=== PATIENT | male | born 1985 | race Caucasian/White ===

== ENCOUNTER 2020-04-05 18:30 | Emergency (ER) | payer BC ==
[2020-04-05] MEDS ORDERED: Benztropine 1 MG Tab PO STA (19:18)
[2020-04-05] MEDS ORDERED: Haloperidol Lactate 5 MG/ML SDV IM ONE (19:18)
--- NOTE | 2020-04-05 19:27 | EDM.PDOC ---
ED HPI GENERAL MEDICAL PROBLEM - General Chief Complaint: Cardiovascular Problem Stated Complaint: LEFT JAW AND ARM PAIN Time Seen by Provider: 04/05/20 18:56 Source of Information: Reports: Patient History Limitations: Reports: No Limitations - History of Present Illness INITIAL COMMENTS - FREE TEXT/NARRATIVE: Mr. Caraballo is a very pleasant 34-year-old gentleman who now presents the ED with unusual neurologic symptoms. He states that he was in his usual state of good health until around 16:00 afternoon, when he developed an "odd" discomfort in his left shoulder. He states that he did not pay much attention to it, however, not long afterwards he then developed an unusual sensation running down his left upper extremity, followed by a tingling/numbness sensation in his left 4th and 5th fingers, followed by the same tingling and numbness sensation involving his entire left upper extremity, including his left hand and remaining fingers. He also reports having an intermittent sharp pain felt in the left side of his neck that will either radiate up to his left jaw or to his left shoulder. He reports feeling his lower left face feeling tingling and numb, and he indicates the area over his left mandible. At present, the tingling and numbness sensation to his lower left face has persisted, although he reports the tingling/numbness sensation to his left upper extremity has improved, although not completely resolved. He also feels, at present, a sort of pain that radiates up and down his left upper extremity. The patient denies finding any modifiers to any of his symptoms, such as position, moving his head around, his neck, or either of his extremities. He also reports developing a headache around 18:00 this evening. He states that initially it was felt bifrontally, but currently is felt in his left forehead. He states that headaches are unusual for him. No associated nausea, blurry vision or other visual changes, or weakness, anywhere. No prior similar symptoms. I was notified by SHIRA Robles, that the patient's checked the patient's blood pressure at home, finding it to be essentially normal, but then giving the patient a dose of her mother's diltiazem, sometime prior to coming to the ED. The patient denies taking any other [id number] or home remedies to address his symptoms prior to coming to the ED. The patient states that he checks his blood glucose once a day, typically in the evening, with a normal Accu-Chek of around 170. Tonight it was 190. Here in the ED, the patient is found to be hemodynamically stable, afebrile, saturating 96% on room air. Prior to 16:00 this afternoon, the patient denies having a recent fever, chills, sore throat, ear pain, nasal or sinus congestion, cough, dyspnea, chest pain, palpitations, nausea, vomiting, constipation, diarrhea, abdominal pain, urinary symptoms, recent weight gain or weight loss, recent bloody bowel movements or black bowel movements, recent joint aches, headaches, or rashes. The patient's PCP is Dr. Ayad Hernandez, in [place]. He did not receive an influenza vaccine this season, and declined an offer to receive one here [facility]. - Related Data Allergies Allergy/AdvReac Type Severity Reaction Status Date / Time meperidine [From Demerol] Allergy Other Verified 04/05/20 18:52 Penicillins Allergy Airway Verified 04/05/20 18:52 Tightness Home Meds: Home Meds Canagliflozin/Metformin HCl [Invokamet 50-1,000 mg Tablet] 1 tab PO DAILY 04/05/20 [History] Diltiazem [Cardizem CD] 04/05/20 [History] Dulaglutide [Trulicity] 1 injection SQ WEEKLY 04/05/20 [History] Omeprazole 20 mg PO DAILY 04/05/20 [History] Rizatriptan Benzoate [Rizatriptan] 1 tab PO ASDIRECTED PRN #3 tab.rapdis 04/05/20 [Rx] atorvaSTATin [Lipitor] 20 mg PO DAILY 04/05/20 [History] lisinopriL [Lisinopril] 5 mg PO DAILY 04/05/20 [History] Past Medical History Cardiovascular History: Reports: High Cholesterol Respiratory History: Reports: Asthma (suspected, not tested) Gastrointestinal History: Reports: GERD Genitourinary History: Reports: Renal Calculus (several) Endocrine/Metabolic History: Reports: Diabetes, Type II, Obesity/BMI 30+ - Infectious Disease History Infectious Disease History: Reports: Chicken Pox - Past Surgical History GI Surgical History: Reports: Appendectomy, EGD (x several, as a child) Male Surgical History: Reports: Ureteral Stent Social & Family History - Tobacco Use Tobacco Use Status *Q: Never Tobacco User - Caffeine Use Caffeine Use: Reports: Coffee, Soda - Alcohol Use Alcohol Use History: No - Recreational Drug Use Recreational Drug Use: No - Living Situation & Occupation Living situation: Reports: , with Spouse Occupation: Employed ([employer]) ED ROS GENERAL - Review of Systems Review Of Systems: Comprehensive ROS is negative, except as noted in HPI. ED EXAM, NEURO - Physical Exam Exam: See Below Exam Limited By: No Limitations General Appearance: Alert, WD/WN, No Apparent Distress Eye Exam: Bilateral Eye: EOMI, Normal Inspection, PERRL Ears: Normal External Exam, Normal Canal, Hearing Grossly Normal, Normal TMs Nose: Normal Inspection, Normal Mucosa, No Blood Throat/Mouth: Normal Inspection, Normal Lips, Normal Teeth, Normal Gums, Normal Oropharynx, Normal Voice, No Airway Compromise Head Exam: Atraumatic, Normocephalic, Other (The patient reports normal and equivalent tactile sensation to both sides of his face, upper and lower) Neck: Normal Inspection, Supple, Non-Tender, Full Range of Motion. No: Lymph adenopathy (L), Lymphadenopathy (R) Respiratory/Chest: No Respiratory Distress, Lungs Clear, Normal Breath Sounds, No Accessory Muscle Use Cardiovascular: Normal Peripheral Pulses, Regular Rate, Rhythm, No Edema, No Gallop, No JVD, No Murmur, No Rub GI/Abdominal: Normal Bowel Sounds, Soft, Non-Tender, No Organomegaly, No Di stention, No Abnormal Bruit, No Mass Neurological: Alert, Normal Dorsiflexion, CN II-XII Intact, Normal Plantar Flexion, Oriented x 3, Other (Subtle weakness to abduction of the left upper extremity at the shoulder, flexion and extension at the left elbow, and left hand hr shared services consultant. Despite the patient reporting an usual sensation to his left upper extremity, he denies any tactile decreased sensation.) Back Exam: Normal Inspection, Full Range of Motion, NT Extremities: Normal Inspection, Normal Range of Motion, No Pedal Edema, Normal Capillary Refill Psychiatric: Normal Affect Skin Exam: Warm, Dry, Intact, Normal Color, No Rash #1 Interpretation EKG Date: 04/05/20 Time: 19:36 Rhythm: NSR Rate (Beats/Min): 96 [place]: Normal P-Wave: Present QRS: Normal ST-T: Normal QT: Normal Comparison: NA - No Prior EKG Course - Vital Signs Last Recorded V/S: Last Vital Signs Temp 36.8 C 04/05/20 18:41 Pulse 90 04/05/20 18:41 Resp 18 04/05/20 18:41 BP 119/81 04/05/20 18:41 Pulse Ox 96 04/05/20 18:41 - Orders/Labs/Meds Orders: Active Orders 24 hr Category Date Time Status Accu Check [Blood Glucose Check, Bedside] [RC] ONETIME Care 04/05/20 19:19 Active EKG Documentation Completion [RC] STAT Care 04/05/20 19:19 Active Head wo Cont [CT] Stat Exams 04/05/20 19:18 Taken Labs: Laboratory Tests 04/05/20 Range/Units 19:29 POC Glucose 145 H (70-105) mg/dL Meds: Medications Discontinued Medications Generic Name Dose Route Start Last Admin Trade Name Freq PRN Reason Stop Dose Admin Benztropine Mesylate 1 mg 04/05/20 19:18 04/05/20 19:27 Cogentin PO 04/05/20 19:19 1 mg ONETIME STA Administration Haloperidol Lactate 5 mg 04/05/20 19:18 04/05/20 19:27 Haldol IM 04/05/20 19:19 5 mg ONETIME ONE Administration - Re-Assessments/Exams Free Text/Narrative Re-Assessment/Exam: 04/05/20 19:20 As above, the patient developed an odd sensation in his left shoulder, with a subsequent unusual sensation in his left upper extremity, followed by tingling and numbness in his left 5th and 4th fingers, followed by tingling and numbness involving his entire left upper extremity, with occasional sharp pain felt in the left side of his neck radiating up to his left jaw, or to his left shoulder, with current symptoms including doing a numbness sensation to his lower left face, along with proved tingling and numbness of his left upper extremity. None of his symptoms are modifiable with position or movement of his head, neck, or upper extremities. The patient reports developing a headache, initially felt bifrontally but now felt in the left forehead area, at some point after the onset of his other symptoms, and continuing until present. On examination, cranial nerves II through XII are completely intact, including tactile sensation of his face, despite the patient reporting an unusual sensation to his lower left face, however, I do notice some subtle weakness to his left upper extremity. Similarly, he reports normal tactile sensation to his left upper extremity, even though he states that it continues to feel odd. No tenderness to palpation of his face, left neck, posterior neck, or left upper extremity. I suspect that the patient is suffering from an unusual presentation of a migraine headache. My suspicion for an acute stroke is low, however, I think it would be prudent to obtain a CT of his head just to make sure that there are no anatomic abnormalities that might explain his symptoms. In the meantime, however, I see no contraindication to treating him for a migraine, therefore I have ordered IM Haldol and oral Cogentin. An ECG obtained at triage is grossly unremarkable. Although the patient states that his blood glucose tonight, after the onset of his symptoms was 190, I have also ordered an Accu-Chek. 04/05/20 19:56 The patient's Accu-Chek is 145. CT of the head without contrast is read by Fer as "No evidence for acute transcortical infarct, acute intracranial hemorrhage, or mass-effect." 04/05/20 20:09 CT results discussed with the patient. He reports complete resolution of his symptoms following IM Haldol. He states that he has no symptoms whatsoever at this time - no headache, nor tingling/numbness anywhere. I will discharge the patient home with recommendation that he get plenty of rest tonight in a dark, quiet place. He should stay adequately hydrated. I will submit a prescription for rizatriptan that the patient can take if his symptoms recur. Departure - Departure Time of Disposition: 20:10 Disposition: Home, Self-Care 01 Condition: Good Clinical Impression: Migraine headache without aura - Discharge Information *PRESCRIPTION DRUG MONITORING PROGRAM REVIEWED*: Not Applicable *COPY OF PRESCRIPTION DRUG MONITORING REPORT IN PATIENT JEREMY: Not Applicable Referrals: Ayad Hernandez MD [Primary Care Provider] - Forms: ED Department Discharge Additional Instructions: You were seen in the emergency room after developing tingling and numbness to the left side of your face, your entire left upper extremity, with pain felt in your neck radiating up to your jaw and shoulder, along with a headache. Work-up in the ER included an Accu-Chek, an ECG, and a CT of your head without contrast. Your blood sugar was 145. Your ECG was unremarkable. The CT of your head found no abnormalities. Your symptoms completely resolved following an injection of Haldol. This indicates that your symptoms were due to a migraine. We recommend that you stay adequately hydrated and get plenty of rest tonight in a dark, quiet place. You should feel much better by tomorrow. A prescription for the anti-migraine medicine rizatriptan (Maxalt) has been sent to the [facility], located just south and across the [address] from [facility]. Dissolve 1 tablet of rizatriptan in your mouth, like a lozenge, at the earliest onset of migraine symptoms. You may repeat after 2 hours, if necessary, to a maximum of 3 tablets within a 24-hour period. If rizatriptan works for you, you may follow-up with your PCP to request an additional prescription. If any other problems, please do not hesitate to return to the ER. Sepsis Event Note (ED) - Evaluation Sepsis Screening Result: No Definite Risk - Focused Exam Vital Signs: Vital Signs Temp Pulse Resp BP Pulse Ox 04/05/20 18:41 36.8 C 90 18 119/81 96 - My Orders Last 24 Hours: My Active Orders 04/05/20 19:18 Head wo Cont [CT] Stat 04/05/20 19:19 Accu Check [Blood Glucose Check, Bedside] [RC] ONETIME EKG Documentation Completion [RC] STAT - Assessment/Plan Last 24 Hours: My Active Orders 04/05/20 19:18 Head wo Cont [CT] Stat 04/05/20 19:19 Accu Check [Blood Glucose Check, Bedside] [RC] ONETIME EKG Documentation Completion [RC] STAT
--- NOTE | 2020-04-06 08:46 | CT ---
PROCEDURE INFORMATION: Exam: CT Head Without Contrast Exam date and time: 04/05/2020 7:31 PM Age: 34 years old Clinical indication: Other: Pare[place]sia lt face, lue TECHNIQUE: Imaging protocol: Computed tomography of the head without contrast. Radiation optimization: All CT scans at this facility use at least one of these dose optimization techniques: automated exposure control; mA and/or kV adjustment per patient size (includes targeted exams where dose is matched to clinical indication); or iterative reconstruction. COMPARISON: No relevant prior studies available. FINDINGS: Brain: No evidence for acute transcortical infarct. No mass effect or midline shift. No extra-axial collection. No acute intracranial hemorrhage. Basal cisterns are patent. Cerebral ventricles: No ventriculomegaly. Bones/joints: Unremarkable. No acute fracture. Paranasal sinuses: Visualized sinuses are unremarkable. No fluid levels. Mastoid air cells: Visualized mastoid air cells are well aerated. Soft tissues: Unremarkable. IMPRESSION: No evidence for acute transcortical infarct, acute intracranial hemorrhage, or mass effect. Thank you for allowing us to participate in the care of your patient. Dictated and Authenticated by: Harman Day MD 04/05/2020 8:52 PM Central Time ([place] & [place]) JAQUELIN
== END 2020-04-05 20:27 | disposition home or self-care (01) ==
LOC: JD.ED 18:30
DX: G43.009 Migraine without aura, not intractable, without status migrainosus (principal); E78.00 Pure hypercholesterolemia, unspecified; K21.9 Gastro-esophageal reflux disease without esophagitis; E11.9 Type 2 diabetes mellitus without complications; E66.9 Obesity, unspecified; Z68.33 Body mass index [BMI] 33.0-33.9, adult; Z88.5 Allergy status to narcotic agent; Z88.0 Allergy status to penicillin; Z79.84 Long term (current) use of oral hypoglycemic drugs; Z79.899 Other long term (current) drug therapy
CPT/HCPCS: 70450; 82962; 93005; 96372; 99284; A9270; J1630; 93010